=== PATIENT | female | born 1950 | race Caucasian/White ===

== ENCOUNTER → 2017-03-11 | Outpatient (CLI) | payer MEDICARE ==
[~2017-03-11] MED LIST: ASP81CT; LVT.05T; MULT-418
--- NOTE | 2017-03-11 15:45 | Diagnostic Imaging Report ---
INDICATION: Abdominal pain. COMPARISON: None available. FINDINGS AND IMPRESSION: 1. Nonobstructive bowel gas pattern. 2. No evidence of free intraperitoneal air, though evaluation is mildly limited on supine imaging. 3. An 8mm linear mineralized focus in the left upper quadrant may represent intraluminal bowel contents. However, this could also represent a left renal calculus. If there is clinical concern for renal calculi, unenhanced CT of the abdomen could be performed. Dictated by: Dictated on workstation # [id number]
== END ==
LOC: RAD 12:13
PROVIDERS: ATTEND Nurse Practitioner Family
DX: R93.3 Abnormal findings on diagnostic imaging of other parts of digestive tract (principal); R10.84 Generalized abdominal pain
CPT/HCPCS: 74000

== ENCOUNTER → 2019-04-03 | Outpatient (CLI) | payer MEDICARE | LOC: LAB 09:18 | PROVIDERS: ATTEND Family Medicine | DX: R19.7 Diarrhea, unspecified (principal) | CPT/HCPCS: 87015; 87045; 87046; 87899 ==

== ENCOUNTER → 2019-04-04 | Outpatient (CLI) | payer MEDICARE ==
--- NOTE | 2019-04-04 15:17 | Diagnostic Imaging Report ---
PROCEDURE: CT abdomen and pelvis with contrast. TECHNIQUE: Multiple contiguous axial images were obtained through the abdomen and pelvis after administration of intravenous contrast. Auto Exposure Controls were utilized during the CT exam to meet ALARA standards for radiation dose reduction. INDICATION: Abdominal pain, diarrhea and hiatal hernia. FINDINGS: There is mild hiatal hernia. Note is made of an approximately 1 cm lucency in the dome of the left hepatic lobe which may represent a cyst. Otherwise, there is mild low-density throughout the liver indicating hepatic steatosis. Gallbladder, pancreas and spleen are unremarkable. There is no evidence of adrenal gland or renal abnormality. There are numerous diverticula throughout the colon. There is no evidence of focal inflammation. No organized fluid collection is identified. Partially opacified urinary bladder is unremarkable. Note is made of grade 1 anterolisthesis of L4 on L5 which appears to be due to degenerative facet disease. There is also degenerative disc and facet disease at the L5-S1 level. IMPRESSION: 1. Mild hepatic steatosis and small hiatal hernia. 2. There is lower lumbar degenerative change. 3. No acute abnormality is identified. Dictated by: Dictated on workstation # [id number]
== END ==
LOC: RAD 13:40
PROVIDERS: ATTEND Nurse Practitioner Family
DX: K44.9 Diaphragmatic hernia without obstruction or gangrene (principal); K76.0 Fatty (change of) liver, not elsewhere classified; R19.7 Diarrhea, unspecified; M47.816 Spondylosis without myelopathy or radiculopathy, lumbar region
CPT/HCPCS: 74177

== ENCOUNTER → 2021-08-21 | Outpatient (CLI) | payer MEDICARE | LOC: LABNPT 08:50 | PROVIDERS: ATTEND Family Medicine | DX: U07.1 COVID-19 (principal) | CPT/HCPCS: 87635; 87804 ==